=== PATIENT | female | born 1980 | race Caucasian/White ===

== ENCOUNTER 2020-03-12 17:58 | Emergency (ER) | payer SELFPAY ==
[~2020-03-12] VITALS: Ht 167.6 cm; Wt 90.0 kg
[2020-03-12 18:15] VITALS: BP 122/77
[2020-03-12] MEDS ORDERED: ACETAMINOPHEN 325MG TABLET PO ONE (18:30)
== END 2020-03-12 18:49 | disposition home or self-care (01) ==
LOC: ER 17:58
DX: J02.9 Acute pharyngitis, unspecified (principal)
CPT/HCPCS: 87070; 87430; 99283

== ENCOUNTER 2020-06-21 07:50 | Emergency (ER) | payer OTHER ==
[~2020-06-21] VITALS: Ht 157.5 cm; Wt 91.0 kg
[2020-06-21 08:08] VITALS: BP 120/71
[2020-06-21] MEDS ORDERED: IBUPROFEN 800MG TABLET PO ONE (09:15)
== END 2020-06-21 10:04 | disposition home or self-care (01) ==
LOC: ER 08:36
DX: M54.9 Dorsalgia, unspecified (principal); M54.2 Cervicalgia; Z98.890 Other specified postprocedural states
CPT/HCPCS: 99282